=== PATIENT | male | born 1940 | race Caucasian/White ===

== ENCOUNTER → 2016-03-16 | Outpatient (REF) | payer MEDICARE ==
[~2016-03-16] MED LIST: COLA100C PO; ROXI1TAB2 PO
[2016-03-16 16:32] LABS: INR 1.91
== END | disposition home or self-care (01) ==
LOC: M SFHCCAPE 13:49
PROVIDERS: ATTEND Family Medicine
DX: Z51.81 Encounter for therapeutic drug level monitoring (principal); Z79.01 Long term (current) use of anticoagulants

== ENCOUNTER → 2016-03-30 | Outpatient (REF) | payer MEDICARE ==
[2016-03-30 11:51] LABS: INR 2.35
== END | disposition home or self-care (01) ==
LOC: M SFHCCLAY 09:06
PROVIDERS: ATTEND Family Medicine
DX: Z51.81 Encounter for therapeutic drug level monitoring (principal); Z79.01 Long term (current) use of anticoagulants

== ENCOUNTER → 2016-04-25 | Outpatient (REF) | payer MEDICARE ==
[2016-04-25 19:17] LABS: INR 2.5
== END | disposition home or self-care (01) ==
LOC: M SFHCCLAY 13:32
PROVIDERS: ATTEND Family Medicine
DX: Z51.81 Encounter for therapeutic drug level monitoring (principal); Z79.01 Long term (current) use of anticoagulants

== ENCOUNTER → 2016-05-24 | Outpatient (REF) | payer MEDICARE ==
[2016-05-24 18:25] LABS: INR 1.9
== END ==
LOC: M SFHCCLAY 11:44
PROVIDERS: ATTEND Family Medicine
DX: Z51.81 Encounter for therapeutic drug level monitoring (principal); Z79.01 Long term (current) use of anticoagulants

== ENCOUNTER → 2016-05-30 | Outpatient (REF) | payer MEDICARE ==
[~2016-05-30] MED LIST changes: -COLA100C PO; +COLA100C3 PO
[2016-05-31 11:52] LABS: INR 1.89
[2016-05-31 12:09] LABS: BASO % 0.2 % (0.0-1.0); EOS # 0.1 K/mm3 (0.0-0.50); EOS % 1.7 % (0.0-3.0); LARGE UNSTAINED CELL # 0.1 K/mm3 (0.0-0.4); LARGE UNSTAINED CELL % 2.1 % (0.0-4.0); LYMPH # 1.5 K/mm3 (1.5-4.5); LYMPH % 32.6 % (24.0-44.0); MEAN CORPUSCULAR HEMOGLOBIN 30.1 pg (27.0-33.0); MEAN CORPUSCULAR HGB CONC 31.7 g/dl (32.0-36.5); MEAN CORPUSCULAR VOLUME 94.9 fl (80.0-96.0); MONO # 0.3 K/mm3 (0.0-0.8); NEUTROPHILS # 2.6 K/mm3 (1.8-7.7); NEUTROPHILS % 56.5 % (36.0-66.0); PLATELET COUNT, AUTOMATED 194 k/mm3 (150-450); RED CELL DISTRIBUTION WIDTH 13.5 % (11.5-14.5); WHITE BLOOD COUNT 4.6 K/mm3 (4.0-10.0)
[2016-05-31 12:25] LABS: ALBUMIN 3.8 GM/DL (3.2-5.2); ALBUMIN/GLOBULIN RATIO 1.19 (1.00-1.93); ALKALINE PHOSPHATASE 76 U/L (45-117); ALT/SGPT 19 U/L (12-78); ANION GAP 10 MEQ/L (8-16); AST/SGOT 17 U/L (15-37); BILIRUBIN,TOTAL 0.3 MG/DL (0.2-1.0); BLOOD UREA NITROGEN 22 MG/DL (7-18); CALCIUM LEVEL 9.1 MG/DL (8.8-10.2); CARBON DIOXIDE LEVEL 26 MEQ/L (21-32); CHLORIDE LEVEL 110 MEQ/L (98-107); CHOLESTEROL LEVEL 154 MG/DL (<200); CREATININE FOR GFR 1.22 MG/DL (0.70-1.30); GLOMERULAR FILTRATION RATE > 60.0 (>42); GLUCOSE, FASTING 120 MG/DL (83-110); POTASSIUM SERUM 4.4 MEQ/L (3.5-5.1); SODIUM LEVEL 146 MEQ/L (136-145); TRIGLYCERIDES LEVEL 97 MG/DL (<150)
== END ==
LOC: M SFHCCLAY 14:56
PROVIDERS: ATTEND Family Medicine
DX: Z51.81 Encounter for therapeutic drug level monitoring (principal); Z79.01 Long term (current) use of anticoagulants; I10 Essential (primary) hypertension; E11.9 Type 2 diabetes mellitus without complications; E78.00 Pure hypercholesterolemia, unspecified
CPT/HCPCS: 80053; 80061; 83036; 85025; 85610; G0463

== ENCOUNTER → 2016-06-21 | Outpatient (REF) | payer MEDICARE ==
[2016-06-21 17:44] LABS: INR 2.06
== END ==
LOC: M SFHCCLAY 13:36
PROVIDERS: ATTEND Family Medicine
DX: Z51.81 Encounter for therapeutic drug level monitoring (principal); Z79.01 Long term (current) use of anticoagulants

== ENCOUNTER → 2016-07-19 | Outpatient (REF) | payer MEDICARE ==
[2016-07-19 18:02] LABS: INR 2.52
== END ==
LOC: M SFHCCLAY 13:05
PROVIDERS: ATTEND Family Medicine
DX: Z79.01 Long term (current) use of anticoagulants (principal)

== ENCOUNTER → 2016-08-16 | Outpatient (REF) | payer MEDICARE ==
[2016-08-16 17:16] LABS: INR 2.46
== END ==
LOC: M SFHCCLAY 13:55
PROVIDERS: ATTEND Family Medicine
DX: Z51.81 Encounter for therapeutic drug level monitoring (principal); Z79.01 Long term (current) use of anticoagulants

== ENCOUNTER → 2016-09-14 | Outpatient (REF) | payer MEDICARE ==
[~2016-09-14] MED LIST changes: -COLA100C3 PO; +COLA100C5 PO
[2016-09-14 17:53] LABS: INR 2.76
== END ==
LOC: M SFHCCLAY 13:36
PROVIDERS: ATTEND Family Medicine
DX: Z79.01 Long term (current) use of anticoagulants (principal); I10 Essential (primary) hypertension

== ENCOUNTER → 2016-10-12 | Outpatient (REF) | payer MEDICARE ==
[2016-10-12 18:01] LABS: INR 2.51
== END ==
LOC: M SFHCCLAY 13:47
PROVIDERS: ATTEND Family Medicine
DX: Z79.01 Long term (current) use of anticoagulants (principal)

== ENCOUNTER → 2016-11-09 | Outpatient (REF) | payer MEDICARE ==
[2016-11-09 17:53] LABS: INR 2.02
== END ==
LOC: M SFHCCLAY 13:58
PROVIDERS: ATTEND Family Medicine
DX: Z51.81 Encounter for therapeutic drug level monitoring (principal); Z79.01 Long term (current) use of anticoagulants

== ENCOUNTER → 2016-12-07 | Outpatient (REF) | payer MEDICARE ==
[2016-12-07 16:55] LABS: ALBUMIN 3.5 GM/DL (3.2-5.2); ALBUMIN/GLOBULIN RATIO 1.25 (1.00-1.93); ALKALINE PHOSPHATASE 56 U/L (45-117); ALT/SGPT 20 U/L (12-78); ANION GAP 7 MEQ/L (8-16); AST/SGOT 14 U/L (15-37); BILIRUBIN,TOTAL 0.2 MG/DL (0.2-1.0); BLOOD UREA NITROGEN 21 MG/DL (7-18); CALCIUM LEVEL 8.6 MG/DL (8.8-10.2); CARBON DIOXIDE LEVEL 26 MEQ/L (21-32); CHLORIDE LEVEL 108 MEQ/L (98-107); CREATININE FOR GFR 1.17 MG/DL (0.70-1.30); GLOMERULAR FILTRATION RATE > 60.0 (>42); GLUCOSE, FASTING 135 MG/DL (83-110); POTASSIUM SERUM 4.7 MEQ/L (3.5-5.1); SODIUM LEVEL 141 MEQ/L (136-145); TOTAL PROTEIN 6.3 GM/DL (6.4-8.2)
[2016-12-07 18:26] LABS: INR 2.47
== END ==
LOC: M SFHCCLAY 13:29
PROVIDERS: ATTEND Family Medicine
DX: I10 Essential (primary) hypertension (principal); E11.9 Type 2 diabetes mellitus without complications; Z79.01 Long term (current) use of anticoagulants

== ENCOUNTER → 2017-01-04 | Outpatient (REF) | payer MEDICARE ==
[2017-01-04 17:42] LABS: INR 3.38
== END ==
LOC: M SFHCCLAY 11:35
PROVIDERS: ATTEND Family Medicine
DX: Z79.01 Long term (current) use of anticoagulants (principal)

== ENCOUNTER → 2017-02-15 | Outpatient (REF) | payer MEDICARE ==
[2017-02-15 16:44] LABS: INR 1.35
== END ==
LOC: M SFHCCLAY 14:03
PROVIDERS: ATTEND Family Medicine
DX: Z79.01 Long term (current) use of anticoagulants (principal)

== ENCOUNTER → 2017-03-08 | Outpatient (REF) | payer MEDICARE ==
[2017-03-08 17:13] LABS: INR 1.82
== END ==
LOC: M SFHCCLAY 13:16
DX: Z79.01 Long term (current) use of anticoagulants (principal)
CPT/HCPCS: 85610

== ENCOUNTER → 2017-04-06 | Outpatient (REF) | payer MEDICARE ==
[2017-04-06 17:39] LABS: INR 2.81; PROTHROMBIN TIME 30.8 SECONDS (12.4-14.5)
== END ==
LOC: M SFHCCLAY 10:35
DX: Z79.01 Long term (current) use of anticoagulants (principal)
CPT/HCPCS: 85610

== ENCOUNTER → 2017-04-25 | Outpatient (REF) | payer MEDICARE ==
[2017-04-25 18:10] LABS: PROTHROMBIN TIME 27.1 SECONDS (12.4-14.5)
== END ==
LOC: M SFHCCLAY 13:59
DX: Z79.01 Long term (current) use of anticoagulants (principal)
CPT/HCPCS: 85610

== ENCOUNTER → 2017-05-23 | Outpatient (REF) | payer MEDICARE ==
[2017-05-23 18:23] LABS: INR 2.95; PROTHROMBIN TIME 32.1 SECONDS (12.4-14.5)
== END ==
LOC: M SFHCCLAY 13:36
DX: Z79.01 Long term (current) use of anticoagulants (principal)
CPT/HCPCS: 85610

== ENCOUNTER → 2017-06-13 | Outpatient (REF) | payer MEDICARE ==
[2017-06-13 17:30] LABS: INR 2.54; PROTHROMBIN TIME 28.4 SECONDS (12.4-14.5)
== END ==
LOC: M SFHCCLAY 09:58
DX: Z79.01 Long term (current) use of anticoagulants (principal)
CPT/HCPCS: 85610

== ENCOUNTER → 2017-07-12 | Outpatient (REF) | payer MEDICARE ==
[2017-07-12 16:54] LABS: INR 2.89; PROTHROMBIN TIME 31.5 SECONDS (12.4-14.5)
[2017-07-12 17:03] LABS: ALBUMIN 3.6 GM/DL (3.2-5.2); ALBUMIN/GLOBULIN RATIO 1.09 (1.00-1.93); ALKALINE PHOSPHATASE 76 U/L (45-117); ALT/SGPT 19 U/L (12-78); ANION GAP 8 MEQ/L (8-16); AST/SGOT 16 U/L (7-37); BILIRUBIN,TOTAL 0.2 MG/DL (0.2-1.0); BLOOD UREA NITROGEN 25 MG/DL (7-18); CALCIUM LEVEL 8.9 MG/DL (8.8-10.2); CARBON DIOXIDE LEVEL 27 MEQ/L (21-32); CHLORIDE LEVEL 108 MEQ/L (98-107); CHOLESTEROL LEVEL 141 MG/DL (<200); CHOLESTEROL RISK RATIO 3.133 (<5); GLOMERULAR FILTRATION RATE 52.6 (>42); GLUCOSE, FASTING 107 MG/DL (70-100); HDL CHOLESTEROL 45 MG/DL (>40); NON-HDL-C 96 MG/DL; POTASSIUM SERUM 4.7 MEQ/L (3.5-5.1); SODIUM LEVEL 143 MEQ/L (136-145); TOTAL PROTEIN 6.9 GM/DL (6.4-8.2); TRIGLYCERIDES LEVEL 80 MG/DL (<150)
[2017-07-12 17:40] LABS: ESTIMATED AVERAGE GLUCOSE 140 MG/DL (60-110); HEMOGLOBIN A1c 6.5 %
== END ==
LOC: M SFHCCLAY 11:56
DX: Z51.81 Encounter for therapeutic drug level monitoring (principal); Z79.01 Long term (current) use of anticoagulants; E11.9 Type 2 diabetes mellitus without complications
CPT/HCPCS: 80053

== ENCOUNTER → 2017-08-09 | Outpatient (REF) | payer MEDICARE ==
[2017-08-10 07:14] LABS: INR 2.99; PROTHROMBIN TIME 32.4 SECONDS (12.4-14.5)
== END ==
LOC: M SFHCCLAY 11:51
DX: Z79.01 Long term (current) use of anticoagulants (principal)
CPT/HCPCS: 85610

== ENCOUNTER → 2017-09-05 | Outpatient (REF) | payer MEDICARE ==
[2017-09-05 17:07] LABS: INR 2.77; PROTHROMBIN TIME 30.4 SECONDS (12.4-14.5)
== END ==
LOC: M SFHCCLAY 14:01
DX: Z79.01 Long term (current) use of anticoagulants (principal); I48.0 Paroxysmal atrial fibrillation
CPT/HCPCS: 85610

== ENCOUNTER → 2017-10-04 | Outpatient (REF) | payer MEDICARE ==
[2017-10-04 17:42] LABS: INR 2.55; PROTHROMBIN TIME 27.9 SECONDS (12.1-14.4)
== END ==
LOC: M SFHCCLAY 14:12
DX: Z51.81 Encounter for therapeutic drug level monitoring (principal); Z79.01 Long term (current) use of anticoagulants
CPT/HCPCS: 85610

== ENCOUNTER → 2017-11-01 | Outpatient (REF) | payer MEDICARE ==
[2017-11-01 17:26] LABS: INR 2.93; PROTHROMBIN TIME 31.2 SECONDS (12.1-14.4)
== END ==
LOC: M SFHCCLAY 13:53
DX: Z79.01 Long term (current) use of anticoagulants (principal)
CPT/HCPCS: 85610

== ENCOUNTER → 2017-11-29 | Outpatient (REF) | payer MEDICARE ==
[2017-11-29 18:38] LABS: INR 3.32; PROTHROMBIN TIME 34.5 SECONDS (12.1-14.4)
== END ==
LOC: M SFHCCLAY 12:05
DX: Z79.01 Long term (current) use of anticoagulants (principal)
CPT/HCPCS: 85610

== ENCOUNTER → 2017-12-12 | Outpatient (REF) | payer MEDICARE ==
[2017-12-12 18:35] LABS: INR 1.68; PROTHROMBIN TIME 20.1 SECONDS (12.1-14.4)
== END ==
LOC: M SFHCCLAY 13:43
DX: Z79.01 Long term (current) use of anticoagulants (principal)
CPT/HCPCS: 85610

== ENCOUNTER → 2018-01-02 | Outpatient (REF) | payer MEDICARE ==
[2018-01-02 12:52] LABS: INR 2.63; PROTHROMBIN TIME 28.6 SECONDS (12.1-14.4)
== END ==
LOC: M SFHCCLAY 09:17
DX: Z79.01 Long term (current) use of anticoagulants (principal)
CPT/HCPCS: 85610

== ENCOUNTER → 2018-01-30 | Outpatient (REF) | payer MEDICARE ==
[2018-01-30 17:09] LABS: INR 2.39; PROTHROMBIN TIME 26.6 SECONDS (12.1-14.4)
== END ==
LOC: M SFHCCLAY 16:18
DX: Z51.81 Encounter for therapeutic drug level monitoring (principal); Z79.01 Long term (current) use of anticoagulants
CPT/HCPCS: 85610

== ENCOUNTER → 2018-02-27 | Outpatient (REF) | payer MEDICARE ==
[2018-02-27 17:33] LABS: INR 2.51; PROTHROMBIN TIME 27.6 SECONDS (12.1-14.4)
== END ==
LOC: M SFHCCLAY 13:46
PROVIDERS: ATTEND Family Medicine
DX: Z79.01 Long term (current) use of anticoagulants (principal)

== ENCOUNTER → 2018-03-27 | Outpatient (REF) | payer MEDICARE ==
[2018-03-27 17:30] LABS: INR 3.05; PROTHROMBIN TIME 32.2 SECONDS (12.1-14.4)
== END ==
LOC: M SFHCCLAY 13:50
PROVIDERS: ATTEND Family Medicine
DX: Z79.01 Long term (current) use of anticoagulants (principal)

== ENCOUNTER → 2018-04-24 | Outpatient (REF) | payer MEDICARE ==
[2018-04-24 16:38] LABS: BASO % 0.4 % (0.0-1.0); EOS % 0.6 % (0.0-3.0); HEMATOCRIT 39.9 % (42.0-52.0); HEMOGLOBIN 12.5 g/dl (13.5-17.5); LYMPH % 29.7 % (24.0-44.0); MEAN CORPUSCULAR HEMOGLOBIN 29.6 pg (27.0-33.0); MEAN CORPUSCULAR HGB CONC 31.3 g/dl (32.0-36.5); MEAN CORPUSCULAR VOLUME 94.3 fl (80.0-96.0); MONO # 0.7 10^3/uL (0.0-0.8); MONO % 10.8 % (0.0-5.0); NEUTROPHILS % 58.4 % (36.0-66.0); PLATELET COUNT, AUTOMATED 192 10^3/uL (150-450); RED BLOOD COUNT 4.23 10^6/uL (4.30-6.10); WHITE BLOOD COUNT 6.8 10^3/uL (4.0-10.0)
[2018-04-24 16:48] LABS: INR 2.75; PROTHROMBIN TIME 29.7 SECONDS (12.1-14.4)
[2018-04-24 17:03] LABS: ALBUMIN 3.7 GM/DL (3.2-5.2); BILIRUBIN,TOTAL 0.1 MG/DL (0.2-1.0); CALCIUM LEVEL 8.8 MG/DL (8.8-10.2); CHOLESTEROL RISK RATIO 2.896 (<5); CREATININE FOR GFR 1.34 MG/DL (0.70-1.30); GLOMERULAR FILTRATION RATE 55.2 (>42); POTASSIUM SERUM 4.7 MEQ/L (3.5-5.1); TOTAL PROTEIN 7.3 GM/DL (6.4-8.2)
[2018-04-24 17:05] LABS: HEMOGLOBIN A1c 7.7 %
== END ==
LOC: M SFHCCLAY 13:54
PROVIDERS: ATTEND Family Medicine
DX: Z79.01 Long term (current) use of anticoagulants (principal); E11.9 Type 2 diabetes mellitus without complications; I48.0 Paroxysmal atrial fibrillation

== ENCOUNTER → 2018-05-22 | Outpatient (REF) | payer MEDICARE ==
[2018-05-22 16:46] LABS: INR 2.2; PROTHROMBIN TIME 24.9 SECONDS (12.1-14.4)
== END ==
LOC: M SFHCCLAY 13:53
PROVIDERS: ATTEND Family Medicine
DX: Z79.01 Long term (current) use of anticoagulants (principal); I48.0 Paroxysmal atrial fibrillation

== ENCOUNTER → 2018-06-19 | Outpatient (REF) | payer MEDICARE ==
[2018-06-19 17:32] LABS: INR 2.67
== END ==
LOC: M SFHCCLAY 11:59
PROVIDERS: ATTEND Family Medicine
DX: Z79.01 Long term (current) use of anticoagulants (principal)

== ENCOUNTER → 2018-07-17 | Outpatient (REF) | payer MEDICARE ==
[2018-07-17 17:06] LABS: INR 2.99; PROTHROMBIN TIME 31.7 SECONDS (12.1-14.4)
== END ==
LOC: M SFHCCLAY 13:31
PROVIDERS: ATTEND Family Medicine
DX: Z79.01 Long term (current) use of anticoagulants (principal); I48.0 Paroxysmal atrial fibrillation

== ENCOUNTER → 2018-08-14 | Outpatient (REF) | payer MEDICARE ==
[2018-08-14 18:16] LABS: INR 3.08; PROTHROMBIN TIME 32.5 SECONDS (12.1-14.4)
== END ==
LOC: M SFHCCLAY 13:52
PROVIDERS: ATTEND Family Medicine
DX: Z79.01 Long term (current) use of anticoagulants (principal); I48.0 Paroxysmal atrial fibrillation

== ENCOUNTER → 2018-09-11 | Outpatient (REF) | payer MEDICARE ==
[2018-09-11 16:42] LABS: INR 2.21; PROTHROMBIN TIME 24.3 SECONDS (11.8-14.0)
== END ==
LOC: M SFHCCLAY 13:50
PROVIDERS: ATTEND Family Medicine
DX: Z79.01 Long term (current) use of anticoagulants (principal); I48.0 Paroxysmal atrial fibrillation

== ENCOUNTER → 2018-10-10 | Outpatient (REF) | payer MEDICARE ==
[2018-10-10 17:26] LABS: INR 2.37; PROTHROMBIN TIME 25.7 SECONDS (11.8-14.0)
== END ==
LOC: M SFHCCLAY 13:49
PROVIDERS: ATTEND Family Medicine
DX: Z79.01 Long term (current) use of anticoagulants (principal); I48.0 Paroxysmal atrial fibrillation

== ENCOUNTER → 2018-10-31 | Outpatient (REF) | payer MEDICARE ==
[2018-10-31 19:16] LABS: PROTHROMBIN TIME 22.5 SECONDS (11.8-14.0)
== END ==
LOC: M SFHCCLAY 14:00
PROVIDERS: ATTEND Family Medicine
DX: Z79.01 Long term (current) use of anticoagulants (principal); I48.0 Paroxysmal atrial fibrillation

== ENCOUNTER → 2018-11-28 | Outpatient (REF) | payer MEDICARE ==
[2018-11-28 17:15] LABS: INR 2.48; PROTHROMBIN TIME 26.7 SECONDS (11.8-14.0)
== END ==
LOC: M SFHCCLAY 13:51
PROVIDERS: ATTEND Family Medicine
DX: Z79.01 Long term (current) use of anticoagulants (principal); I48.0 Paroxysmal atrial fibrillation

== ENCOUNTER → 2018-12-25 | Outpatient (REF) | payer MEDICARE ==
[2018-12-26 12:12] LABS: INR 2.71; PROTHROMBIN TIME 28.6 SECONDS (11.8-14.0)
[2018-12-26 12:20] LABS: CALCIUM LEVEL 9.1 MG/DL (8.8-10.2); CREATININE FOR GFR 1.48 MG/DL (0.70-1.30); GLOMERULAR FILTRATION RATE 49.2 (>42); POTASSIUM SERUM 4.8 MEQ/L (3.5-5.1)
[2018-12-26 12:45] LABS: HEMOGLOBIN A1c 6.9 %
== END ==
LOC: M SFHCCLAY 13:23
PROVIDERS: ATTEND Family Medicine
DX: E11.9 Type 2 diabetes mellitus without complications (principal); Z79.01 Long term (current) use of anticoagulants; I48.0 Paroxysmal atrial fibrillation

== ENCOUNTER → 2019-01-22 | Outpatient (REF) | payer MEDICARE ==
[2019-01-23 11:56] LABS: INR 2.84; PROTHROMBIN TIME 29.7 SECONDS (11.8-14.0)
== END ==
LOC: M SFHCCLAY 13:52
PROVIDERS: ATTEND Family Medicine
DX: Z79.01 Long term (current) use of anticoagulants (principal); I48.0 Paroxysmal atrial fibrillation

== ENCOUNTER → 2019-02-19 | Outpatient (REF) | payer MEDICARE ==
[2019-02-19 17:17] LABS: INR 3.15; PROTHROMBIN TIME 32.3 SECONDS (11.8-14.0)
== END ==
LOC: M SFHCCLAY 11:47
PROVIDERS: ATTEND Family Medicine
DX: Z79.01 Long term (current) use of anticoagulants (principal); I48.0 Paroxysmal atrial fibrillation

== ENCOUNTER → 2019-03-20 | Outpatient (REF) | payer MEDICARE ==
[2019-03-21 12:57] LABS: INR 3.07; PROTHROMBIN TIME 31.6 SECONDS (11.8-14.0)
== END ==
LOC: M SFHCCLAY 14:20
PROVIDERS: ATTEND Family Medicine
DX: I48.0 Paroxysmal atrial fibrillation (principal)

== ENCOUNTER → 2019-04-02 | Outpatient (REF) | payer MEDICARE | LOC: M SFHCCLAY 11:07 | PROVIDERS: ATTEND Family Medicine | DX: E11.9 Type 2 diabetes mellitus without complications (principal) ==

== ENCOUNTER → 2019-04-16 | Outpatient (REF) | payer MEDICARE ==
[2019-04-16 17:16] LABS: CREATININE FOR GFR 1.38 MG/DL (0.70-1.30); GLOMERULAR FILTRATION RATE 53.2 (>42); POTASSIUM SERUM 4.5 MEQ/L (3.5-5.1)
[2019-04-16 17:17] LABS: HEMOGLOBIN A1c 6.9 %
[2019-04-16 17:21] LABS: INR 2.2; PROTHROMBIN TIME 24.2 SECONDS (11.8-14.0)
== END ==
LOC: M SFHCCLAY 13:48
PROVIDERS: ATTEND Family Medicine
DX: Z79.01 Long term (current) use of anticoagulants (principal); I48.0 Paroxysmal atrial fibrillation

== ENCOUNTER → 2019-09-18 | Outpatient (REF) | payer MEDICARE ==
[2019-09-18 17:12] LABS: INR 2.42; PROTHROMBIN TIME 26.2 SECONDS (11.8-14.0)
== END ==
LOC: M SFHCCLAY 12:07
PROVIDERS: ATTEND Family Medicine
DX: I48.0 Paroxysmal atrial fibrillation (principal); Z79.01 Long term (current) use of anticoagulants

== ENCOUNTER → 2019-12-11 | Outpatient (REF) | payer MEDICARE ==
[2019-12-11 16:48] LABS: INR 2.62; PROTHROMBIN TIME 28.6 SECONDS (12.5-14.3)
== END ==
LOC: M SFHCCLAY 14:31
PROVIDERS: ATTEND Family Medicine
DX: Z79.01 Long term (current) use of anticoagulants (principal)

== ENCOUNTER → 2020-02-18 | Outpatient (REF) | payer MEDICARE ==
[2020-02-18 16:41] LABS: CALCIUM LEVEL 8.6 MG/DL (8.8-10.2); CHOLESTEROL RISK RATIO 3.541 (<5); CREATININE FOR GFR 1.43 MG/DL (0.70-1.30); GLOMERULAR FILTRATION RATE 50.9 (>42); POTASSIUM SERUM 4.6 MEQ/L (3.5-5.1)
[2020-02-18 17:00] LABS: INR 2.69; PROTHROMBIN TIME 29.2 SECONDS (12.5-14.3)
[2020-02-18 17:11] LABS: HEMOGLOBIN A1c 6.9 %
== END ==
LOC: M SFHCCLAY 10:50
PROVIDERS: ATTEND Family Medicine
DX: E11.9 Type 2 diabetes mellitus without complications (principal); E78.00 Pure hypercholesterolemia, unspecified; Z79.01 Long term (current) use of anticoagulants

== ENCOUNTER → 2020-08-19 | Outpatient (REF) | payer MEDICARE ==
[2020-08-19 16:45] LABS: MAU/CREAT RATIO 12.9 MCG/MG (0.0-30.0)
[2020-08-19 18:32] LABS: CREATININE FOR GFR 1.56 MG/DL (0.70-1.30); GLOMERULAR FILTRATION RATE 46.1 (>42); POTASSIUM SERUM 4.7 MEQ/L (3.5-5.1)
[2020-08-19 20:26] LABS: HEMOGLOBIN A1c 6.3 %
== END ==
LOC: M SFHCCLAY 11:01
PROVIDERS: ATTEND Family Medicine
DX: E11.9 Type 2 diabetes mellitus without complications (principal)

== ENCOUNTER → 2021-04-14 | Outpatient (REF) | payer MEDICARE ==
[2021-04-14 12:11] LABS: INR 1.96; PROTHROMBIN TIME 22.7 SECONDS (12.7-14.5)
[2021-04-14 12:31] LABS: HEMOGLOBIN A1c 7.4 %
[2021-04-14 12:37] LABS: CALCIUM LEVEL 8.7 MG/DL (8.8-10.2); CHOLESTEROL RISK RATIO 3.019 (<5); CREATININE FOR GFR 1.37 MG/DL (0.70-1.30); GLOMERULAR FILTRATION RATE 53.4 (>42); POTASSIUM SERUM 4.3 MEQ/L (3.5-5.1)
== END ==
LOC: M SFHCCLAY 09:14
PROVIDERS: ATTEND Family Medicine
DX: I11.9 Hypertensive heart disease without heart failure (principal); E11.9 Type 2 diabetes mellitus without complications; E78.00 Pure hypercholesterolemia, unspecified; I48.0 Paroxysmal atrial fibrillation; Z79.01 Long term (current) use of anticoagulants

== ENCOUNTER → 2021-04-15 | Outpatient (REF) | payer MEDICARE ==
[2021-04-15 16:59] LABS: CREATININE, URINE 70.9 MG/DL; MALB URINE SIEMENS 12.9 MG/L; MAU/CREAT RATIO 18.1 MCG/MG (0.0-30.0)
== END ==
LOC: M SFHCCLAY 15:49
PROVIDERS: ATTEND Family Medicine
DX: E11.9 Type 2 diabetes mellitus without complications (principal)

== ENCOUNTER → 2021-09-29 | Outpatient (REF) | payer MEDICARE ==
[2021-09-29 18:45] LABS: CALCIUM LEVEL 9.1 MG/DL (8.8-10.2); CREATININE FOR GFR 1.49 MG/DL (0.70-1.30); GLOMERULAR FILTRATION RATE 48.4 (>42); POTASSIUM SERUM 4.4 MEQ/L (3.5-5.1)
[2021-09-29 18:46] LABS: HEMOGLOBIN A1c 6.7 %
== END ==
LOC: M SFHCCLAY 09:39
PROVIDERS: ATTEND Family Medicine
DX: I11.9 Hypertensive heart disease without heart failure (principal); E11.9 Type 2 diabetes mellitus without complications

== ENCOUNTER → 2022-05-06 | Outpatient (REF) | payer MEDICARE ==
[2022-05-06 17:35] LABS: CALCIUM LEVEL 8.7 MG/DL (8.3-10.6); CHOLESTEROL RISK RATIO 2.67 (<5); CREATININE FOR GFR 1.3 MG/DL (0.70-1.30); GLOMERULAR FILTRATION RATE 56.5 (>35); HDL CHOLESTEROL 56.9 MG/DL (>40); LDL CHOLESTEROL 79.3 MG/DL (<100)
[2022-05-06 17:45] LABS: HEMOGLOBIN A1c 7.8 % (4.0-6.0)
== END ==
LOC: M SFHCCLAY 13:56
PROVIDERS: ATTEND Nurse Practitioner Family
DX: N18.31 Chronic kidney disease, stage 3a (principal); E78.00 Pure hypercholesterolemia, unspecified; E11.9 Type 2 diabetes mellitus without complications

== ENCOUNTER → 2023-06-14 | Outpatient (REF) | payer MEDICARE ==
[2023-06-14 18:19] LABS: ALBUMIN 3.3 G/DL (3.2-5.2); BILIRUBIN,TOTAL 0.3 MG/DL (0.3-1.2); CALCIUM LEVEL 8.5 MG/DL (8.3-10.6); CREATININE FOR GFR 1.35 MG/DL (0.70-1.30); POTASSIUM SERUM 4.7 MMOL/L (3.5-5.1); TOTAL PROTEIN 6.1 G/DL (5.7-8.2)
== END ==
LOC: M SFHCCLAY 11:54
PROVIDERS: ATTEND Nurse Practitioner Family
DX: R60.9 Edema, unspecified (principal); G89.29 Other chronic pain

== ENCOUNTER → 2023-08-03 | Outpatient (REF) | payer MEDICARE ==
[2023-08-03 18:01] LABS: BASO % 0.5 % (0.0-1.0); EOS # 0.1 10^3/uL (0.0-0.5); EOS % 1.4 % (0.0-3.0); HEMATOCRIT 29.3 % (42.0-52.0); HEMOGLOBIN 9.3 g/dl (13.5-17.5); LYMPH # 1.8 10^3/uL (1.5-5.0); LYMPH % 32.2 % (24.0-44.0); MEAN CORPUSCULAR HEMOGLOBIN 28.5 pg (27.0-33.0); MEAN CORPUSCULAR HGB CONC 31.7 g/dl (32.0-36.5); MEAN CORPUSCULAR VOLUME 89.9 fl (80.0-96.0); MONO # 0.7 10^3/uL (0.0-0.8); MONO % 13.1 % (2.0-8.0); NEUTROPHILS # 2.9 10^3/uL (1.5-8.5); NEUTROPHILS % 52.6 % (36.0-66.0); PLATELET COUNT, AUTOMATED 206 10^3/uL (150-450); RED BLOOD COUNT 3.26 10^6/uL (4.30-6.10); WHITE BLOOD COUNT 5.6 10^3/uL (4.0-10.0)
[2023-08-03 18:30] LABS: CHOLESTEROL RISK RATIO 2.83 (<5); HDL CHOLESTEROL 47.7 MG/DL (>40); LDL CHOLESTEROL 68.9 MG/DL (<100); NON-HDL-C 87.3 MG/DL
[2023-08-03 18:40] LABS: CALCIUM LEVEL 8.3 MG/DL (8.3-10.6); CREATININE FOR GFR 1.41 MG/DL (0.70-1.30); GLOMERULAR FILTRATION RATE 51.4 (>35); POTASSIUM SERUM 4.4 MMOL/L (3.5-5.1)
[2023-08-04 15:31] LABS: PERCENT SATURATION 12.1 % (19.7-50.0)
[2023-08-04 15:34] LABS: FERRITIN 26.7 NG/ML (10.5-307.3); FOLATE 15.42 NG/ML (>5.4)
== END ==
LOC: M SFHCCLAY 13:37
PROVIDERS: ATTEND Nurse Practitioner Family
DX: R60.9 Edema, unspecified (principal); E78.00 Pure hypercholesterolemia, unspecified

== ENCOUNTER → 2023-11-30 | Outpatient (REF) | payer MEDICARE | LOC: M SFHCDERM 12:59 | PROVIDERS: ATTEND Nurse Practitioner Family | DX: C44.329 Squamous cell carcinoma of skin of other parts of face (principal) ==

== ENCOUNTER 2024-03-30 21:42 | Emergency (ER) | payer MEDICARE ==
[~2024-03-30] VITALS: Ht 165.1 cm; Wt 56.0 kg
[2024-03-30 21:45] VITALS: TEMP 97.5
[2024-03-30 22:27] LABS: KETONE, URINE MANUAL REFLEX NEGATIVE (NEGATIVE); PROTEIN, URINE MANUAL REFLEX TRACE mg/dL (NEGATIVE); SP GRAVITY,URINE MANUAL REFLEX 1.015 (1.002-1.035)
[2024-03-30 22:28] LABS: NITRITE, URINE MANUAL RFX NEGATIVE (NEGATIVE); UROBILINOGEN, UA MANUAL REFLEX NORMAL (NORMAL)
[2024-03-30 22:30] LABS: RBC, URINE MAN REFLEX 0-1 /hpf (0-3); SQUAMOUS EPITHELIAL URINE RFX SMALL AMOUNT /hpf (SMALL AMT); WBC, URINE MAN RFX 0-1 /hpf (0-3)
[2024-03-30 22:31] LABS: HYALINE CAST, URINE RFX NONE SEEN /lpf (0-1); MICROSCOPIC EXAM RFX UNSPUN
[2024-03-31 00:39] LABS: BASO % 0.4 % (0.0-1.0); EOS # 0.1 10^3/uL (0.0-0.5); HEMATOCRIT 30.1 % (42.0-52.0); HEMOGLOBIN 9.7 g/dl (13.5-17.5); LYMPH % 20.1 % (24.0-44.0); MEAN CORPUSCULAR HEMOGLOBIN 28.6 pg (27.0-33.0); MEAN CORPUSCULAR HGB CONC 32.2 g/dl (32.0-36.5); MEAN CORPUSCULAR VOLUME 88.8 fl (80.0-96.0); MONO # 0.6 10^3/uL (0.0-0.8); MONO % 11.1 % (2.0-8.0); NEUTROPHILS # 3.3 10^3/uL (1.5-8.5); NEUTROPHILS % 67.2 % (36.0-66.0); PLATELET COUNT, AUTOMATED 162 10^3/uL (150-450); RED BLOOD COUNT 3.39 10^6/uL (4.30-6.10)
[2024-03-31 01:02] LABS: ALBUMIN 3.6 G/DL (3.2-5.2); ALKALINE PHOSPHATASE 83 U/L (40-129); ALT/SGPT 19 U/L (7.0-40); AST/SGOT 22 U/L (<34); BILIRUBIN,TOTAL 0.4 MG/DL (0.3-1.2); BLOOD UREA NITROGEN 31 MG/DL (9-23); CALCIUM LEVEL 8.4 MG/DL (8.3-10.6); CARBON DIOXIDE LEVEL 25 MMOL/L (20-31); CHLORIDE LEVEL 106 MMOL/L (98-107); CREATININE FOR GFR 1.09 MG/DL (0.70-1.30); GLOMERULAR FILTRATION RATE > 60.0 (>35); GLUCOSE, FASTING 180 MG/DL (74-106); POTASSIUM SERUM 4.1 MMOL/L (3.5-5.1); SODIUM LEVEL 143 MMOL/L (136-145); TOTAL PROTEIN 6.6 G/DL (5.7-8.2)
[2024-03-31 02:12] VITALS: O2SAT 100
[2024-03-31 02:16] VITALS: BP 214/90
== END 2024-03-31 03:01 | disposition home or self-care (01) ==
LOC: M ED 21:42
DX: R33.9 Retention of urine, unspecified (principal); E11.9 Type 2 diabetes mellitus without complications; I10 Essential (primary) hypertension; E78.5 Hyperlipidemia, unspecified; Z79.899 Other long term (current) drug therapy

== ENCOUNTER → 2024-05-21 | Outpatient (REF) | payer MEDICARE ==
[2024-05-21 17:27] LABS: BASO % 0.6 % (0.0-1.0); EOS # 0.1 10^3/uL (0.0-0.5); EOS % 1.3 % (0.0-3.0); HEMATOCRIT 31.6 % (42.0-52.0); HEMOGLOBIN 9.8 g/dl (13.5-17.5); LYMPH # 1.1 10^3/uL (1.5-5.0); LYMPH % 23.4 % (24.0-44.0); MEAN CORPUSCULAR HEMOGLOBIN 27.9 pg (27.0-33.0); MONO # 0.4 10^3/uL (0.0-0.8); MONO % 8.9 % (2.0-8.0); NEUTROPHILS # 3.1 10^3/uL (1.5-8.5); NEUTROPHILS % 65.6 % (36.0-66.0); PLATELET COUNT, AUTOMATED 197 10^3/uL (150-450); RED BLOOD COUNT 3.51 10^6/uL (4.30-6.10); WHITE BLOOD COUNT 4.7 10^3/uL (4.0-10.0)
[2024-05-21 17:54] LABS: FERRITIN 25.8 NG/ML (10.5-307.3)
== END ==
LOC: M SFHCCLAY 11:43
PROVIDERS: ATTEND Nurse Practitioner Family
DX: D64.9 Anemia, unspecified (principal)